=== PATIENT | male | born 1960 | race Caucasian/White ===

== ENCOUNTER 2023-07-03 05:48 | Outpatient (CLI) | payer MEDICARE ==
[~2023-07-03] VITALS: Ht 185.4 cm; Wt 93.4 kg
[2023-07-03] MEDS ORDERED: DIPH-1122 PO (16:07)
[2023-07-03] MEDS ORDERED: ASPI-1238 PO (16:07)
[2023-07-03] MEDS ORDERED: MULT-593 PO (16:07)
[2023-07-03] MEDS ORDERED: OMEG100032 PO (16:07)
== END 2023-07-03 16:18 | disposition home or self-care (01) ==
LOC: PREOP 05:48
PROVIDERS: ATTEND Surgery
DX: Z01.818 Encounter for other preprocedural examination (principal)

== ENCOUNTER 2023-07-15 07:38 | Day surgery (SDC) | payer MEDICARE ==
[~2023-07-15] VITALS: Ht 185.4 cm; Wt 93.4 kg
[~2023-07-15 07:38] MED LIST: ASPI-1238 PO; DIPH-1122 PO; MULT-593 PO; OMEG100032 PO
[2023-07-15] MEDS ORDERED: LACTATED RINGERS 1,000 ML 1,000 ML IV STA (07:44)
[2023-07-15 08:00] VITALS: BP 152/87
--- NOTE | 2023-07-15 09:23 | Progress Note-Pre Operative ---
Pre-Operative Progress Note Date of Available H&P: Jun 18, 2023 Date H&P Reviewed: Jul 15, 2023 Time H&P Reviewed: 08:41 History & Physical: H&P Reviewed, Patient Examed, No changes noted Pre-Operative Diagnosis: Screening HARRISON HOGAN DO Jul 15, 2023 09:23
[2023-07-15] MEDS ORDERED: proPOfol INJECTION 200 MG/20 ML VIAL IV ONE (09:53)
[2023-07-15 10:05] VITALS: BP 114/71
--- NOTE | 2023-07-15 10:06 | Progress Note-Post Operative ---
Post-Operative Progess Note Surgeon (s)/Ladle Filler (s) Surgeon HARRISON HOGAN DO Ladle Filler: Joan Armenta, DAVIDII Pre-Operative Diagnosis Screening Post-Operative Diagnosis Polyp Poor prep Int hemorrhoids Procedure & Operative Findings Date of Procedure 07/15/23 Procedure Performed/Findings Colonoscopy with snare polypectomy PROCEDURE NOTE: After informed consent was obtained, the patient was brought to the endoscopy suite, placed in bed in left lateral decubitus position. He was administered IV sedation by the POWER ELECTRONICS ENGINEER who then monitored his vitals the entire time, heart rate, blood pressure and pulse ox and the scope was inserted; immediately upon entering noted a large amount of liquid stool and small vegetable matter. I pushed all the way to about 150 cm and pushed into the cecum. I found a small polyp outside the cecum that I removed with the snare; but it may have gotten lost in the fecal material. In the cecum I took a picture of appendiceal orifice and noted the ileocecal valve. Then slowly withdrew the scope insufflating to look circumferentially at the davalos starting in the cecum, up the ascending colon to the hepatic flexure, then down the transverse colon, splenic flexure, into the descending colon down into the sigmoid and then into the rectal vault. Throughout the entire colon there was fecal material and I was unable to suction it all out and it obscured the scope. I retroflexed the scope and took a picture of the internal hemorrhoids. The patient tolerated the procedure. He was recovered in endoscopy suite. Recommended for repeat colonoscopy in 1 year because of the poor prep. Anesthesia Type IV sedation by POWER ELECTRONICS ENGINEER Estimated Blood Loss Estimated blood loss (mL): scant Specimens/Packing Specimens Removed asc colon polyp HARRISON HOGAN DO Jul 15, 2023 10:06
--- NOTE | 2023-07-15 10:07 | Endoscopy Discharge Instruct ---
Endo Procedure/Findings Findings 1.: Polyp 2.: Internal Hemorrhoids 3.: Other Findings (poor prep) Discharge Instructions - Activity: You might feel a little sleepy until tomorrow. This is due to the medicine you received to relax you. Until tomorrow, you should: NOT drive a car, operate machinery or power tools. NOT drink any alcoholic beverages. NOT make any important decisions or sign importortant papers. Do not return to work until tomorrow, unless otherwise instructed. Resume previous activities tomorrow. Diet: Start by taking liquids. If you tolerate liquids, advance to solid food. 1.: Colonoscopy in 1 year Notify Physician - If you experience excessive bleeding, unusual abdominal pain, fever, or chest pain, contact your doctor immediately. Follow-Up: Other Follow up in my office in one week HARRISON HOGAN DO Jul 15, 2023 10:07
[2023-07-15 10:10] VITALS: BP 116/73
[2023-07-15 11:30] VITALS: BP 116/73
--- NOTE | 2023-07-15 17:10 | Anesthesia-General Post-Op ---
MAC Patient Condition Mental Status/LOC: Same as Preop Cardiovascular: Satisfactory Nausea/Vomiting: Absent Respiratory: Satisfactory Pain: Controlled Complications: Absent Post Op Complications Complications None Follow Up Care/Instructions Patient Instructions None needed. Anesthesiology Discharge Order Discharge Order Patient is doing well, no complaints, stable vital signs, no apparent adverse anesthesia problems. No complications reported per nursing. DUONG ROSAS CRNA Jul 15, 2023 17:10
== END 2023-07-15 11:30 | disposition home or self-care (01) ==
LOC: ENDO 07:38
PROVIDERS: ATTEND Surgery
DX: Z12.11 Encounter for screening for malignant neoplasm of colon (principal); K63.5 Polyp of colon; K64.8 Other hemorrhoids